=== PATIENT | male | born 1975 | race African-American/Black ===

== ENCOUNTER 2018-10-09 05:20 | Inpatient (IN) | payer OTHER ==
[~2018-10-09] VITALS: Ht 189.2 cm; Wt 136.1 kg
[2018-10-09] VITALS (15 sets, daily range): BP systolic 79–154; BP diastolic 52–88
[~2018-10-09 05:20] MED LIST: AMLODIPINE BESY10 MG ORAL
[2018-10-09] MEDS ORDERED: fentaNYL 100 mcg/2 mL IV ONE (06:07)
[2018-10-09] MEDS ORDERED: Midazolam 2mg/2ml Inj ONE (06:08)
[2018-10-09] MEDS ORDERED: Lidocaine 1% MPF 10mg/ml 5ml ONE (06:09)
[2018-10-09] MEDS ORDERED: Zemuron 50mg/5ml Inj IV ONE (06:15)
[2018-10-09] MEDS ORDERED: Succinylcholine 20mg/ml 10ml vial ONE (06:15)
[2018-10-09] MEDS ORDERED: Propofol 200mg/20ml IV ONE (06:20)
[2018-10-09] MEDS ORDERED: Vancomycin 1gm vial IVPB ONE ×2 (06:21→08:03)
[2018-10-09] MEDS ORDERED: Gelfoam Size TOPIC ONE (06:21)
[2018-10-09] MEDS ORDERED: Thrombin 5000 units TOPIC ONE ×2 (06:21→08:17)
[2018-10-09] MEDS ORDERED: Bacitracin 50000 Units Vial ONE (06:22)
[2018-10-09] MEDS ORDERED: Bupivacaine w/Epi 0.5% 30ml Vial INJ ONE (06:22)
[2018-10-09] MEDS ORDERED: LR 1000ml ONE (06:30)
[2018-10-09] MEDS ORDERED: Sterile Water Irrig 1000ml IRRIG ONE (06:30)
--- NOTE | 2018-10-09 06:43 | Pre-Procedure Note/Attestation ---
Pre-Procedure Note/Attestation Complete Prior to Procedure Planned Procedure: right Procedure Narrative: Right sided L45 and L5S1 microdiscectomy Indications for Procedure Pre-Operative Diagnosis: herniation L45 and L5S1 Attestation I attest that I discussed the nature of the procedure; its benefits; risks and complications; and alternatives (and the risks and benefits of such alternatives ), prior to the procedure, with the patient (or the patient's legal underwriting service representative). I attest that, if there was a reasonable possibility of needing a blood transfusion, the patient (or the patient's legal underwriting service representative) was given the [facility] standardized written summary, pursuant to the Zane Tayo Blood Safety Act ([place] Health and Safety Code # 1645, as amended). I attest that I re-evaluated the patient just prior to the surgery and that there has been no change in the patient's H&P, except as documented below: Alvaro Rodríguez MD Oct 09, 2018 06:42
--- NOTE | 2018-10-09 06:43 | Brief Operative Note ---
Immediate Post Operative Note Operative Note Chief Complaint: back pain and radiculopathy Pre-op Diagnosis: herniation L45 and L5S1 Procedure: Right sided L45 and L5S1 microdiscectomy Post-op Diagnosis: same as pre-op Findings: consistent w/pre-op dx studies Surgeon: Anne Carbonation Tester: Reymundo Anesthesiologist: ERNA Anesthesia: general Specimen: none Complications: none Condition: stable Fluids: ivf Estimated Blood Loss: minimal Drains: none Implant(s) used?: No Alvaro Rodríguez MD Oct 09, 2018 06:43
[2018-10-09] MEDS ORDERED: Morphine Sulfate 2mg/ml Inj(IV/IM USE ONLY) IV PRN (06:45)
[2018-10-09] MEDS ORDERED: HYDROcodone/Acetamin 7.5/325 tab ORAL PRN ×2 (06:45)
[2018-10-09] MEDS ORDERED: HYDROmorphone 1mg/ml Carpuject IVP PRN (06:45)
[2018-10-09] MEDS ORDERED: Milk of Magnesia 30ml Ud ORAL PRN (06:45)
[2018-10-09] MEDS ORDERED: Morphine Sulfate 4mg/ml Inj (IV USE ONLY) IV PRN ×2 (06:45)
[2018-10-09] MEDS ORDERED: HYDROcodone/Acetamin 5/325 tab ORAL PRN (06:45)
[2018-10-09] MEDS ORDERED: Naloxone 0.4mg/ml Inj IVP PRN (06:45)
[2018-10-09] MEDS ORDERED: Metoclopramide 10mg/2ml Inj IVP PRN (06:45)
[2018-10-09] MEDS ORDERED: Chloraseptic Spray 20mL Bottle ORAL PRN (06:45)
[2018-10-09] MEDS ORDERED: Propofol 1,000mg/ 100ml btl IV ONE (07:00)
[2018-10-09] MEDS ORDERED: ceFAZolin sod 2 GM in D5W 110 ML IVPB ONE (07:00)
[2018-10-09] MEDS ORDERED: Sodium Chloride 10ml vial INJ ONE ×2 (07:24→07:39)
[2018-10-09] MEDS ORDERED: ePHEDrine 50mg/ml Inj ONE (07:24)
[2018-10-09] MEDS ORDERED: Morphine Sulfate 10mg/ml Inj ONE (07:38)
[2018-10-09] MEDS ORDERED: Glycopyrrolate 0.2mg/ml 1ml Vial ONE (07:39)
[2018-10-09] MEDS ORDERED: Ketorolac 30mg Inj ONE (07:39)
[2018-10-09] MEDS ORDERED: Neostigmine 1mg/ml 10ml Inj ONE (07:39)
[2018-10-09] MEDS ORDERED: LR 1000ml 1,000 ML IVLG SCH (07:53)
--- NOTE | 2018-10-09 07:53 | Anethesia Preoperative Eval ---
Anesthesia Pre-op PMH/ROS General Date of Evaluation: Oct 09, 2018 Time of Evaluation: 06:35 Anesthesiologist: Eddie ASA Score: ASA 2 Mallampati Score Class I : Soft palate, uvula, fauces, pillars visible Class II: Soft palate, uvula, fauces visible Class III: Soft palate, base of uvula visible Class IV: Only hard plate visible Mallampati Classification: Class II Surgeon: Anne Diagnosis: Lumbar radiculopathy Surgical Procedure: L4 to S1 laminotomy with decompression Anesthesia History: none Family History: no anesthesia problems Allergies: Coded Allergies: CORN (Verified Allergy, Severe, 10/08/18) TRIGGERS ASTHMA AND GETS SOB,GENERAL SWELLING Medications: see eMAR Patient NPO?: Yes NPO Date: Oct 08, 2018 NPO Time: 1999 Past Medical History Cardiovascular: Reports: HTN; Denies: CAD, [place], valve dz, arrhythmia, other Pulmonary: Reports: asthma; Denies: COPD, DAVIE, other Gastrointestinal/Genitourinary: Reports: GERD; Denies: CRI, ESRD, other Neurologic/Psychiatric: Reports: other - chronic pain; Denies: dementia, CVA, depression/anxiety, TIA Endocrine: Denies: DM, hypothyroidism, steroids, other HEENT: Denies: cataract (L), cataract (R), glaucoma, [place] (L), [place] (R), other Hematology/Immune: Denies: anemia, DVT, bleeding disorder, other Musculoskeletal/Integumentary: Denies: OA, RA, DJD, DDD, edema, other Other: obesity PMH Narrative: as above PSxH Narrative: Hernia repair Anesthesia Pre-op Phys. Exam Physician Exam Last Vital Signs Date Time Temp Pulse Resp B/P (MAP) Pulse Ox O2 Delivery O2 Flow Rate FiO2 10/09/18 06:14 Room Air 10/09/18 06:01 97.3 69 18 146/81 (102) 96 Constitutional: NAD Neurologic: CN 2-12 intact Cardiovascular: RRR, no M/R/G Respiratory: CTA Gastrointestinal: other - obesity Airway Exam Mallampati Score: Class II MO: full Neck: short ROM: full Teeth: intact Dentures: no upper, no lower Anesthesia Pre-op A/P Labs see chart Studies Pre-op Studies: EKG - NSR Risk Assessment & Plan Assessment: ASA 2 Plan: GA with ETT prone position neuromonitoring Status Change Before Surgery: No Pre-Antibiotics Drug: Ancef 2gr. Given Within 1 Hr of Incision: Yes Time Given: 06:52 Mario Morgan MD Oct 09, 2018 07:53
[2018-10-09] MEDS ORDERED: Acetaminophen (Non formulary) 100 ML IV ONE (08:00)
[2018-10-09] MEDS ORDERED: Meperidine 50mg/ml Inj(FOR RIGORS ONLY) IV PRN (08:00)
[2018-10-09] MEDS ORDERED: DiphenhydrAMINE 50mg/ml Inj IVP PRN (08:00)
[2018-10-09] MEDS ORDERED: Ketorolac 30mg Inj IV PRN (08:00)
[2018-10-09] MEDS ORDERED: NS Irrig 1000ml IRRIG ONE (08:16)
--- NOTE | 2018-10-09 09:28 | Immediate Post-Op Evaluation ---
Immediate Post-Op Evalulation Immediate Post-Op Evalulation Procedure: L4 to S1 laminotomy with decompression Date of Evaluation: Oct 09, 2018 Time of Evaluation: 09:27 IV Fluids: 1400 Blood Products: none Estimated Blood Loss: 50 Urinary Output: 100 Blood Pressure Systolic: 117 Blood Pressure Diastolic: 56 Pulse Rate: 78 Respiratory Rate: 20 O2 Sat by Pulse Oximetry: 99 Temperature (Fahrenheit): 97.8 Pain Score (1-10): 1 Nausea: No Vomiting: No Complications none Patient Status: reacts, patent, extubated, none Hydration Status: adequate Mario Morgan MD Oct 09, 2018 09:28
[2018-10-09] MEDS: Hydromorphone 0.5mg/0.5ml inj IVP PRN ×2 (09:59→10:19)
--- NOTE | 2018-10-09 10:45 | NUR ---
NURSE NOTES: Received report form Jennifer, SEED AND FERTILIZER SPECIALIST. Patient a/o x 4. No respiratory distress noted. Pt on O2 2L/min. Right hand IV is patent. Surgical back site is dry/intact. c/o tightness on back site as 710. Unit orientation was given. Bed in lowest position, call light within reach. Will continue to monitor.
--- NOTE | 2018-10-09 11:10 | Diagnostic Imaging Report ---
Indication: Back pain. Technique: Fluoroscopic imaging from spinal procedure total number of images obtained: 2 Surgeon: Alvaro Rodríguez Total fluoroscopy time: 12.4 seconds Total fluoroscopy dose: 10.7 mGy Comparison: None Findings: 2 lateral fluoroscopic views of the lower lumbar spine obtained during procedure submitted for archival the PACS. Views demonstrate surgical clips projecting over the level of L4 and L5. Impression: Fluoroscopic imaging from spinal procedure. Please see procedure report.
[2018-10-09] MEDS: 1/2NS w/KCl 20mEq 1000ml 1,000 ML IV SCH ×2 (12:18→22:05)
[2018-10-09] MEDS: Dexamethasone 4mg/ml vial IVP SCH ×3 (12:18→23:40)
--- NOTE | 2018-10-09 12:56 | NUR ---
CASE MANAGEMENT:REVIEW 43 YR OLD FEMALE HERE FOR ELECTIVE SURGERY SI: BACK PAIN. RADICULOPATHY 97.3 69 18 146/81 96% ON RA IS: TO SURGERY FOR: L45 AND L5S1 MICRODISCECTOMY IV ANCEF Q8HRS IV DECADRON Q6HRS IVF@100/HR IV MORPHINE Q4HRS PRN : TO MED/SURG 3 EAST POST OP INTERQUAL CRITERIA MET
[2018-10-09] MEDS: ceFAZolin sod 1 GM in D5W 55 ML IV SCH ×2 (14:54→22:05)
--- NOTE | 2018-10-09 16:45 | Operative Note - Dictated ---
DATE OF OPERATION: 10/09/2018 SURGEON: Alvaro Rodríguez MD, Orthopaedic Spine Surgeon. SALES REPRESENTATIVE BUSINESS COURSES: Michael Dwyer M.D. ANESTHESIA: General endotracheal anesthesia. PREOPERATIVE DIAGNOSES: 1. Intractable back pain. 2. Intractable leg pain. 3. Worsening radiculopathy. 4. Weakness. 5. Herniated nucleus pulposus, L4-L5 and L5-S1 herniation. 6. Neural foraminal stenosis, L4-L5 and L5-S1. POSTOPERATIVE DIAGNOSES: 1. Intractable back pain. 2. Intractable leg pain. 3. Worsening radiculopathy. 4. Weakness. 5. Herniated nucleus pulposus, L4-L5 and L5-S1 herniation. 6. Neural foraminal stenosis, L4-L5 and L5-S1. PROCEDURES PERFORMED: 1. Right-sided L4-L5 and L5-S1 microdiscectomy. 2. L4-L5 and L5-S1 hemilaminotomy, foraminotomy and medial facetectomy. 3. L4-L5 and L5-S1 neural foraminotomy through a pedicle to pedicle approach. 4. Use of intraoperative microscope. 5. Supervision and interpretation of intraoperative fluoroscopy. 6. Supervision and interpretation of somatosensory-evoked potential and free running EMG monitoring. 7. Obesity, Increased difficulty due to added depth of the incision. (Modifier 22) EBL: Less than 100 mL. COMPLICATIONS: None. INDICATIONS FOR THE PROCEDURE: Gena presents for intractable back pain and radiculopathy. The patient tried and failed a prolonged course of conservative management, including but not limited to chiropractic therapy, physical therapy, nonsteroidal anti-inflammatory drugs, medication, ice packs as well as epidural injection. Despite these therapies, the patient still developed recalcitrant pain and elected for definitive management in the form of right-sided L4-L5 and L5-S1 microdiscectomy. We had a long discussion with him regarding definitive surgical treatment options. The patient's MRI demonstrated herniated nucleus pulposus, L4-L5 and L5-S1 herniation; neural foraminal stenosis, L4-L5 and L5-S1 and as a result, I felt he would benefit from the discectomy as well as neural foraminotomy at this level. We had a long discussion with the patient regarding the risks, alternatives, and benefits of surgery. Our description of the risks included a discussion in person as well as a signed consent which detailed all pertinent risks and the procedure itself. Briefly, our discussion included but was not limited to infection, bleeding, pseudarthrosis, spinal cord injury, neurovascular injury, dural tear, CSF leak, neuropathy, paralysis, permanent weakness/drop foot, paresthesias blindness, palsy and weakness. The patient understood there may be a need for revision surgery or additional procedures. Approach related complications including dysphonia, dysphagia, blindness, permanent vocal cord and neural injury, hematoma, swallowing and breathing difficulty. Medical complications including liver, kidney, shock, and cardiopulmonary failure. Anesthesia complications including , swelling. Damage to the musculature, larynx (voice injury or loss),esophagus (throat), trachea, blood vessels and muscles (muscular sprain) and lungs (pneumothorax) during this surgical procedure. Injury to deeper structures may be temporary or permanent. The patient understood these and elected to proceed. A written and verbal consent was given. We discussed the pros and cons of all the alternatives. We discussed the uncertainties associated with the decision. Afterwards I assessed the patients understanding and explored their preferences. All questions were answered and no guarantees were given. Medical clearance was obtained prior to surgery. INTRAOPERATIVE FINDINGS: At L4-L5, the tear in the posterior longitudinal ligament was approximately 20 degrees cephalad to caudad and this tear was carefully mobilized with a 15 blade scalpel and resected. there was a large disk herniation noted. This has significant encroachment on the thecal sac and exiting neural foramina. This disk was large , soft and not calcified. Once the disk was completely resected, there was a paucity of nuclear tissue inside the disk space, which means this was a significant traumatic disk herniation where a large if not most of the nuclear tissue has herniated. At L5-S1, there was a tear through the posterior longitudinal ligament, which was noted to be noncalcified and was approximately 30 degrees in the cephalad to caudad direction. Through this tear, there was nuclear tissue, which had clearly migrated and encroaching on the thecal sac and neural foramina. There was still residual disc inside the disc space which was left untouched. The MRI has demonstrated a herniation at L5-S1 with an abundant disk space at S1-S2. This caused a considerable amount of time preoperatively for me to correlate his intraoperative radiographs with his MRI to confirm correct levels. DESCRIPTION OF PROCEDURE: Under the benefit of general endotracheal anesthesia and with the assistance of the entire operative team, the patient was moved from the gurney onto the operative table in the prone position on a Thomas frame. The head was secured and positioned appropriately. Bilateral arms were secured with Gel pads and foam and all bony prominences were padded. The bilateral lower extremity SCD and ILYA hose were placed for DVT prophylaxis. A surgical timeout was called which corroborated our planned procedure. Preoperative Antibiotics were administered within 30 minutes of the incision for prophylaxis. Decadron was given for preoperative steroids. Using lateral radiography, the operative levels were delineated. An incision was marked based on our interpretation of lateral radiography and afterwards the body was prepped and draped in the usual sterile manner. The family was notified that we were ready to commence surgery and were called in the waiting room hourly for updates. LEVEL: 1 An incision was based on our lateral fluoroscopic image to center the incision at the L5-S1 interspace. The wound was prepped and draped in the usual sterile fashion. Using a scalpel a midline incision was taken down through the skin and subcutaneous tissues until the overlying hemilamina of L4-L5 and S1 were visualized. There was added difficulty due to the obesity and depth required of the incision with the large musculature and added adipose layer made the entire procedure and exposure increasingly difficult because we had to account for this given the length of the instruments. This had to be performed very carefully and at times I was using the instruments by the tips of the handles. Next, using meticulous hemostasis, hemilamotomies were dissected and retractors were placed. Using a [place] dental we confirmed placement at the L4-L5 interspace. We next turned our attention to our decompression. A standard hemilaminotomy foraminotomy medial facetectomy was performed at each level in standard fashion using a Midas-Jose type AM8 drill bit, straight and angled curettage, and Kerrison 4 rongeurs until the lateral thecal sac margin and traversing nerve root was visualized. All remainders of the ligamentum flavum and lateral bony margins were resected in total with angled curettage and Kerrison 4 rongeurs until the lateral thecal sac margin and traversing nerve root was visualized and decompressed. We next turned our attention toward our L4-L5 microdiscectomy on the right side. A Mobeetie 4 was used to gently mobilize the thecal sac medially and this was held retracted with a bayonetted nerve root retractor. It was at this point that we noted a large broad-based disc protrusion with encroachment dorsally on the thecal sac neural foraminal contents. At L4-L5, the tear in the posterior longitudinal ligament was approximately 20 degrees cephalad to caudad and this tear was carefully mobilized with a 15 blade scalpel and resected. there was a large disk herniation noted. This has significant encroachment on the thecal sac and exiting neural foramina. This disk was large , soft and not calcified. Once the disk was completely resected, there was a paucity of nuclear tissue inside the disk space, which means this was a significant traumatic disk herniation where a large if not most of the nuclear tissue has herniated. A bayonetted nerve root retractor was then handed to Dr Dwyer who then with my guidance placed it carefully to retract the thecal sac and a discectomy was performed using a combination of a long handled 15 blade scalpel, downgoing and straight pituitaries and downgoing curettage. Afterward the disc space was irrigated twice with 20 mL of antibiotic-impregnated saline. All loose and free-floating disc fragments were carefully resected with a narrow pituitary. Having been satisfied with our decompression after our discectomy of all neural elements we next turned our attention to our neural foraminoplasty/foraminotomy. This was performed through a pedicle to pedicle decompression which allowed for re-creation of the neural foraminal arch at L4- L5. Afterwards hemostasis was obtained with 60 mL of antibiotic-impregnated saline followed by FloSeal and Gelfoam. After sponge and needle count were found to be correct, next we turned our attention to closure. Closure consisted of 1-0 Vicryl in standard interrupted fashion. Zosyn was placed deep to the fascia and superficial to the fascia for Antibiotic prophylaxis. Skin closure was performed with 2-0 Vicryl in interrupted fashion followed by a running Monocryl for the skin. Final dressings consisted of Dermabond for the superficial skin, Telfa and Tegaderm. The patient tolerated the procedure well. The patient was extubated after the conclusion of surgery without incident. LEVEL: 2 An incision was based on our lateral fluoroscopic image to center the incision at the L5-S1 interspace. The wound was prepped and draped in the usual sterile fashion. Using a scalpel a midline incision was taken down through the skin and subcutaneous tissues until the overlying hemilamina of L5-S1 were visualized. Next, using meticulous hemostasis, hemilamotomies were dissected and retractors were placed. Using a [place] dental we confirmed placement at the L5-S1 interspace. We next turned our attention to our decompression. A standard hemilaminotomy foraminotomy medial facetectomy was performed at each level in standard fashion using a Midas-Jose type AM8 drill bit, straight and angled curettage, and Kerrison 4 rongeurs until the lateral thecal sac margin and traversing nerve root was visualized. All remainders of the ligamentum flavum and lateral bony margins were resected in total with angled curettage and Kerrison 4 rongeurs until the lateral thecal sac margin and traversing nerve root was visualized and decompressed. We next turned our attention toward our L5-S1 microdiscectomy on the right side. A Mobeetie 4 was used to gently mobilize the thecal sac medially and this was held retracted with a bayonetted nerve root retractor. It was at this point that we noted a large broad-based disc protrusion with encroachment dorsally on the thecal sac neural foraminal contents. Here at L5-S1, there was a tear through the posterior longitudinal ligament, which was noted to be noncalcified and was approximately 30 degrees in the cephalad to caudad direction. Through this tear, there was nuclear tissue, which had clearly migrated and encroaching on the thecal sac and neural foramina. There was still residual disc inside the disc space which was left untouched. A bayonet and nerve root retractor was then placed carefully to retract the thecal sac and a discectomy was performed using a combination of a long handled 15 blade scalpel, downgoing and straight pituitaries and downgoing curettage. Afterward the disc space was irrigated twice with 20 mL of antibiotic-impregnated saline. All loose and free-floating disc fragments were carefully resected with a narrow pituitary. Having been satisfied with our decompression after our discectomy of all neural elements we next turned our attention to our neural foraminoplasty/foraminotomy. This was performed through a combination of pituitaries kerrison rongeurs which allowed for re-creation of the neural foraminal arch at L5-S1. Afterwards hemostasis was obtained with 60 mL of antibiotic-impregnated saline followed by FloSeal and Gelfoam. After sponge and needle count were found to be correct, next we turned our attention to closure. Closure consisted of 1-0 Vicryl in standard interrupted fashion. Zosyn was placed deep to the fascia and superficial to the fascia for Antibiotic prophylaxis. Skin closure was performed with 2-0 Vicryl in interrupted fashion followed by a running Monocryl for the skin. Final dressings consisted of Dermabond for the superficial skin, Telfa and Tegaderm. The patient tolerated the procedure well. The patient was extubated after the conclusion of surgery without incident. We discussed the findings of the surgery with the family upon completion of the case. At this point the patient will be transferred to the spine floor for further observation. Alvaro Rodríguez M.D. DR: LUIS ENRIQUE JOB#: [id number] CC: ABEL
[2018-10-09] MEDS: Docusate 100mg cap ORAL SCH (17:48)
--- NOTE | 2018-10-09 18:10 | NUR ---
NURSE NOTES: Patient wants to take proventil at this time. Called Dr. Maldonado and left the message. Waiting MD call back.
[2018-10-09] MEDS ORDERED: PROVENTIL HFA6.7 G1 IH (18:57)
--- NOTE | 2018-10-09 19:00 | NUR ---
NURSE NOTES: Patient wants to take proventil at this time. Called Dr. Maldonado and left the message. Waiting MD call back.
--- NOTE | 2018-10-09 19:05 | NUR ---
NURSE NOTES: Dr. Maldonado called back and ordered continue proventil q6 prn for sob. Noted and carried out.
[2018-10-09] MEDS ORDERED: Albuterol ud Inhalation HHN PRN (19:15)
--- NOTE | 2018-10-09 19:44 | NUR ---
HAND-OFF: Report given to GARY Velázquez.
--- NOTE | 2018-10-09 20:00 | NUR ---
NURSE NOTES: PATIENT IN BED. ON RA, NO SOB, NO ACUTE DISTRESS. LH IV INTACT, PATENT RUNNING IVF. SCD ON. POST OP DSG INTACT, CLEAN, DRY ON LOWER BACK. BED IN LOWEST POSITION, LOCKED, ALARMS ON. CALL LIGHT IN REACH.
[2018-10-10] VITALS: BP 135/65
[2018-10-10 04:00] VITALS: BP 155/86
[2018-10-10] MEDS: Dexamethasone 4mg/ml vial IVP SCH (05:32)
[2018-10-10] MEDS: ceFAZolin sod 1 GM in D5W 55 ML IV SCH (06:25)
--- NOTE | 2018-10-10 07:20 | NUR ---
HAND-OFF: Report given to Joseph VEGA.
--- NOTE | 2018-10-10 07:21 | NUR ---
NURSE NOTES: Received report from GARY Velázquez. Pt in bed. Denies pain at this time. Pt stat he could not sleep well last night because he voided a lot of time. Questions answered. IV is patent. Bed in lowest position, will continue to monitor.
[2018-10-10 08:00] VITALS: BP 171/81
[2018-10-10] MEDS: 1/2NS w/KCl 20mEq 1000ml 1,000 ML IV SCH (08:00)
[2018-10-10] MEDS: Docusate 100mg cap ORAL SCH (08:41)
--- NOTE | 2018-10-10 09:19 | NUR ---
NURSE NOTES: BP was 171/81 and amlodipine 10mg was given as schedule. Called Dr. Maldonado and left the message.
--- NOTE | 2018-10-10 09:51 | 48 Hour Post Anesthesia Eval ---
Post Anesthesia Evaluation Procedure: L4 to S1 laminotomy with decompression Date of Evaluation: Oct 10, 2018 Time of Evaluation: 09:51 Nausea: No Vomiting: No Ruben Cherry MD Oct 10, 2018 09:51
--- NOTE | 2018-10-10 10:58 | Consultation ---
Consult Note Consult Note Cardiology - coverage for Dr. Ding Full consult dictated #[id number] Christina Maldonado MD Oct 10, 2018 10:58
[2018-10-10] MEDS ORDERED: NORCO 10-325 T1 EACH ORAL (11:28)
[2018-10-10] MEDS ORDERED: SOMA350 MG PO (11:28)
[2018-10-10 12:00] VITALS: BP 171/80
[2018-10-10 13:00] VITALS: BP 165/65
--- NOTE | 2018-10-10 13:11 | NUR ---
NURSE NOTES: BP was 165/95. Dr. Rodríguez was notified. Dr. Rodríguez wants me to call Dr. Maldonado. Called Dr. Maldonado and left the message.
--- NOTE | 2018-10-10 13:49 | NUR ---
PT note PT rodney completed, treatment initiated. Patient is alert and cooperative. He needs physical therapy to instruction on spine precautions and safety precautions. Addendum: 10/10/18 at 1350 by EMILIA CONTRERAS PT Amended: Links added.
--- NOTE | 2018-10-10 14:20 | NUR ---
NURSE NOTES: Called Dr. Maldonado again. Dr. Maldonado was notified that pt had high bp 165/95. MD ordered pt can go home. Noted and carried out. Dr. Rodríguez was notified.
--- NOTE | 2018-10-10 14:25 | NUR ---
NURSE NOTES: Discharge instruction was given. IV line and arm band removed. Pt discharged with the family in stable condition.
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
--- NOTE | 2018-10-11 16:15 | Discharge Summary ---
DATE OF ADMISSION: 10/09/2018 DATE OF DISCHARGE: 10/10/2018 DATE OF ADMISSION: 10/09/2018. DATE OF DISCHARGE: 10/10/2018. PROCEDURE PERFORMED DURING ADMISSION: Microdissectomy L4-L5 and L5-S1. REASON FOR ADMISSION: Herniation L4-L5 and L5-S1. HOSPITAL COURSE/TREATMENT RENDERED: DISCHARGE PHYSICAL EXAM: 1. Patient was ambulating with and without the assistance of physical therapy. 2. Prior to discharge home incision was clean and dry with minimal swelling. 3. Follows commands. 4. Alert and oriented. 5. [place] discontinued, voiding. 6. Incentive spirometer at bedside. 7. IVF hep locked. MOTOR: Demonstrates expected postoperative bulk and tone. Moves biceps, triceps, and deltoid musculature on command. Moves hip flexors, quadriceps, tibialis anterior, EHL, gastrocsoleus musculature on command as well. TREATMENT RENDERED: 1. Daily nursing care. 2. Physical Therapy. 3. Occupational Therapy. 4. Intravenous medications. 5. Oral medications. 6. Daily postoperative examinations by Spine surgery team. CONDITION OF PATIENT ON DISCHARGE: The condition on discharge is stable for discharge to home. DISCHARGE INSTRUCTIONS: Our specific instructions relating to physical activity, medications diet and follow-up care are detailed in our standard operative folder and were given to this patient prior to surgery. We will however summarize these briefly as stated below. Regarding physical activity we would like the patient to limit their flexion, extension and rotation. We also require a limitation on their bending lifting and twisting. All medication has been called in prior to surgery to their pharmacy of choice. They can resume their regular diet once tolerated. We would like them to shower and limit soaking the wound in a tub/Jacuzzi/the ocean for a period of one month or until the incision is completely healed. We will have them follow up in our office in three weeks time for their regularly scheduled appointment. They understand to call our office tomorrow to schedule the time for their three week followup appointment. The patient will notify us should they experience any increase in the severity of pain, redness/swelling/ or drainage from their incision. Alvaro Rodríguez M.D. DR: Cisco JOB#: [id number] CC:
== END 2018-10-10 14:25 | disposition home or self-care (01) | DRG 520 ==
LOC: SDSOVERFLO 05:20 → 3E 10:47
PROC: 0SB40ZZ Excision of Lumbosacral Disc, Open Approach (ICD-10-PCS; principal; 2018-10-09 07:00)
PROC: 0SB20ZZ Excision of Lumbar Vertebral Disc, Open Approach (ICD-10-PCS; principal; 2018-10-09 07:00)
PROC: 01NB0ZZ Release Lumbar Nerve, Open Approach (ICD-10-PCS; principal; 2018-10-09 07:00)
DX: M51.16 Intervertebral disc disorders with radiculopathy, lumbar region (principal); M51.17 Intervertebral disc disorders with radiculopathy, lumbosacral region; M48.07 Spinal stenosis, lumbosacral region; I10 Essential (primary) hypertension; J45.909 Unspecified asthma, uncomplicated; E78.5 Hyperlipidemia, unspecified; E66.9 Obesity, unspecified; V89.2XXS Person injured in unspecified motor-vehicle accident, traffic, sequela
CPT/HCPCS: 36415; 72020; 76000; 86850; 86900; 86901; 87081; 94003; 94150; 94664; J2250; J2710